=== PATIENT | female | born 1950 | race Caucasian/White ===

== ENCOUNTER 2017-11-04 13:01 | Day surgery (SDC) | payer OTHER ==
[2017-11-04] MEDS ORDERED: MIDAZOLAM 2 MG/2 ML VIAL IVP PRN (13:17)
[2017-11-04] MEDS ORDERED: FLUMAZENIL 0.5 MG/5 ML MDV IVP PRN (13:17)
[2017-11-04] MEDS ORDERED: MEPERIDINE 25 MG/ML SYR IVP PRN (13:17)
[2017-11-04] MEDS ORDERED: NALOXONE HCL 0.4 MG/ML INJ IVP PRN (13:17)
[2017-11-04] MEDS ORDERED: fentaNYL 100 MCG/2 ML INJ IVP PRN (13:17)
[2017-11-04] MEDS ORDERED: fentaNYL 100 MCG/2 ML INJ ONE (13:21)
[2017-11-04] MEDS ORDERED: NS 1,000 ML IV SCH (13:30)
[2017-11-04 14:17] VITALS: TEMP 98.3
--- NOTE | 2017-11-04 14:32 | PDPROPOC ---
Sedation Plan of Care Sedation Plan of Care: vital signs stable, mental status noted, patient educated of risks, benefits, alternatives, patient can tolerate sedation ASA Classification: ASA 2 Planned drugs: fentanyl, midazolam Mallampati Score: Class 1 Mallampati Reference Image: Patient passed 3-3-2 rule?: Yes
--- NOTE | 2017-11-04 14:34 | PDGENHP ---
History & Physical Chief Complaint: LOW BACK PAIN WITH LEG PAIN History of Present Illness: HAS HAD PAINFUL BACK FOR A WHILE. FRONT AND BACK OF LEGS, SOMETIMES DOWNT TO SHINS. Pertinent Past, Social, Family History: SHOULDER RECONSTRUCTION, ARTHROSCOPY, MENISCAL TEAR. Relevant Physical Exam: NO PAIN WHILE IN SUPINE POSITION. Cardiorespiratory Assessment: RRR, CTA
[2017-11-04] MEDS ORDERED: TRIAMCINOLONE ACETONIDE 200 MG/5 ML MDV IM ONE (15:20)
[2017-11-04] MEDS ORDERED: IOPAMIDOL (ISOVUE-M 300) 15 ML VIAL ONE (15:20)
[2017-11-04] MEDS ORDERED: ONDANSETRON 4 MG/2 ML VIAL IVP PRN (15:36)
--- NOTE | 2017-11-04 15:38 | PDRADPN ---
Radiology Procedure Note Date of Procedure: 11/04/17 Radiologist: Sharri Goncalves Pre-op Diagnosis: BACK PAIN Post-op Diagnosis: SAME Indication: SEVERE PAIN Procedure: L4-5 NEETU Inf/Abcess present in the surg proc area at time of surgery?: No
[2017-11-04 15:44] VITALS: BP 139/75; PULSE 60; RESP 14; O2SAT 100
== END 2017-11-04 16:40 | disposition home or self-care (01) ==
LOC: FIMAGING 13:01
PROVIDERS: ATTEND Family Medicine
PROC: 3E0R33Z Introduction of Anti-inflammatory into Spinal Canal, Percutaneous Approach (ICD-10-PCS; principal; 2017-11-04 15:23)
DX: M54.16 Radiculopathy, lumbar region (principal); M48.061 Spinal stenosis, lumbar region without neurogenic claudication
CPT/HCPCS: J2250; J2310; J3010; J3301; Q9967

== ENCOUNTER 2018-07-01 13:44 | Inpatient (IN) | payer OTHER, MEDICARE ==
[2018-07-02] MEDS ORDERED: LR 1,000 ML IV ONE (13:02)
[2018-07-02] MEDS ORDERED: PROPOFOL/EMULSION 500 MG/50 ML BOTTLE IV ONE (14:10)
[2018-07-02] MEDS ORDERED: HYDROmorphONE/DILAUDID 2 MG/ML INJ ONE ×2 (14:10→19:33)
[2018-07-02] MEDS ORDERED: LIDOCAINE 2% 2 ML INJ ONE (14:11)
[2018-07-02] MEDS ORDERED: THROMBIN (BOVINE) 5,000 UNIT VIAL TP ONE (14:19)
[2018-07-02] MEDS ORDERED: BUPIVACAINE 0.25% 30 ML SDV ONE (14:19)
[2018-07-02] MEDS ORDERED: EPINEPHrine 1 MG/ML INJ ONE (14:19)
[2018-07-02] MEDS ORDERED: CHLORHEXIDINE GLUC HIBICLENS 118 ML BTL TP ONE (14:20)
[2018-07-02] MEDS ORDERED: BACITRACIN 50,000 UNITS/10 ML SYR IRR ONE (14:20)
[2018-07-02] MEDS ORDERED: NS 500 ML IV PRN (14:25)
[2018-07-02] MEDS ORDERED: oxyCODONE IR 5 MG TAB PO PRN (14:25)
[2018-07-02] MEDS ORDERED: DEXAMETHASONE 4 MG/ML VIAL IVP PRN (14:25)
[2018-07-02] MEDS ORDERED: MIDAZOLAM 2 MG/2 ML VIAL IVP ONE (14:25)
[2018-07-02] MEDS ORDERED: ACETAMINOPHEN 500 MG TAB PO PRN (14:25)
[2018-07-02] MEDS ORDERED: PROMETHAZINE HCL 25 MG/ML INJ IVP PRN (14:25)
[2018-07-02] MEDS ORDERED: ONDANSETRON 4 MG/2 ML VIAL IVP PRN ×2 (14:25→15:49)
[2018-07-02] MEDS ORDERED: ALBUTEROL 3 ML DEYVIAL IH PRN (14:25)
[2018-07-02] MEDS ORDERED: NALOXONE HCL 0.4 MG/ML INJ IVP PRN (14:25)
--- NOTE | 2018-07-02 14:25 | PDANEPAE ---
ANE History of Present Illness Lumber TLIF ANE Past Medical History - Cardiovascular History Hx Hypertension: Yes Hx Arrhythmias: No Hx Chest Pain: No Hx Coronary Artery / Peripheral Vascular Disease: No Hx CHF / Valvular Disease: No Hx Palpitations: No - Pulmonary History Hx COPD: No Hx Asthma/Reactive Airway Disease: No Hx Recent Upper Respiratory Infection: No Hx Oxygen in Use at Home: No Hx Sleep Apnea: No Sleep Apnea Screening Result - Last Documented: Negative Pulmonary History Comment: Sep - Neurologic History Hx Cerebrovascular Accident: No Hx Seizures: No Hx Dementia: No Neurologic History Comment: gets 'zings' from buttocks to ankles - Endocrine History Hx Diabetes: No - Renal History Hx Renal Disorders: No - Liver History Hx Hepatic Disorders: No - Neurological & Psychiatric Hx Hx Neurological and Psychiatric Disorders: No - Cancer History Hx Cancer: No - Congenital Disorder History Hx Congenital Disorders: No - GI History Hx Gastrointestinal Disorders: Yes Gastrointestinal History Comment: GERD - Other Health History Other Health History: wears glasses - Chronic Pain History Chronic Pain: Yes (back, legs) - Surgical History Prior Surgeries: right SHOULDER RECONSTRUCTION. ARTHROSCOPIC. TRIMALLEOLAR FX. TONSILS REM. R Meniscus repair x2 ANE Review of Systems Review of Systems: - Exercise capacity METS (RN): 3 METS ANE Patient History - Allergies Allergies/Adverse Reactions: cocoa [chocolate] Allergy (Verified 06/26/18 11:04) Rash, boils Milk Containing Products Allergy (Verified 10/31/17 12:51) Congestion nitrofurantoin [From Macrobid] Allergy (Verified 06/26/18 11:04) high fever, cannot bend joints valacyclovir Allergy (Verified 06/26/18 11:04) vertigo wheat Allergy (Verified 10/31/17 12:51) Congestion - Home Medications Home Medications: Herbals/Supplements -Info Only 1 ea PO DAILY 06/26/18 [Last Taken 06/29/18] [place]orn-3 Fatty Acids [Fish Oil 1000 mg (*)] 1,000 mg PO BID 06/26/18 [Last Taken 06/29/18] Pantoprazole Sodium [Protonix 40mg (*)] 40 mg PO DAILY 06/26/18 [Last Taken 09/18] Triamterene/Hctz 37.5/25 [Dyazide 37.5/25 (*)] 1 each PO DAILY 06/26/18 [Last Taken 07/02/18] amLODIPine BESYLATE [Amlodipine Besylate] 5 mg PO DAILY 06/26/18 [Last Taken 09/18] traMADol [Ultram 50 mg (*)] 75 mg PO TID 06/26/18 [Last Taken 07/02/18] traZODone [traZODONE 100MG (*)] 100 mg PO HS PRN 06/26/18 [Last Taken 07/02/18] - NPO status NPO Since - Liquids (Date): 07/02/18 NPO Since - Liquids (Time): 07:45 NPO Since - Solids (Date): 07/01/18 NPO Since - Solids (Time): 19:30 - Smoking Hx Smoking Status: Former smoker - Family Anes Hx Family Hx Anesthesia Complications: NONE ANE Labs/Vital Signs - Vital Signs Blood Pressure: 116/73 Heart Rate: 69 Respiratory Rate: 16 O2 Sat (%): 93 Height: 162.56 cm Weight: 65.771 kg ANE Physical Exam - Airway Neck exam: FROM Mallampati Score: Class 2 Mouth exam: normal dental/mouth exam - Pulmonary Pulmonary: clear to auscultation - Cardiovascular Cardiovascular: regular rate and rhythym - ASA Status ASA Status: II ANE Anesthesia Plan Anesthesia Plan: general endotracheal anesthesia
[2018-07-02] MEDS ORDERED: ceFAZolin 2 GM/DEXTROSE 100 ML IV ONE (14:27)
[2018-07-02] MEDS ORDERED: ACETAMINOPHEN 500 MG TAB PO ONE (14:27)
[2018-07-02] MEDS ORDERED: traZODone 100 MG TAB PO PRN (14:29)
--- NOTE | 2018-07-02 14:36 | PDHPUP ---
History & Physical Update H&P update statement: This history and physical update is based on an assessment of the patient which was completed after admission or registration (within 24 hours), but prior to the surgery/procedure. H&P update: H&P reviewed & patient examined, no change in patient's condition since H&P completed
[2018-07-02] MEDS ORDERED: MIDAZOLAM 2 MG/2 ML VIAL ONE (14:48)
[2018-07-02] MEDS ORDERED: CEFAZOLIN 2 GM/DEXTROSE/100 ML BAG IV ONE (14:48)
[2018-07-02] MEDS ORDERED: ePHEDrine SULFATE 25 MG/5 ML SYR ONE (15:23)
[2018-07-02] MEDS ORDERED: diphenhydrAMINE 25 MG CAP PO PRN (15:49)
[2018-07-02] MEDS ORDERED: BISACODYL 10 MG SUPP PR PRN (15:49)
[2018-07-02] MEDS ORDERED: ONDANSETRON DISINTEGRATING 4 MG TAB PO PRN (15:49)
[2018-07-02] MEDS ORDERED: LACTULOSE 20 GM/30 ML UDCUP PO PRN (15:49)
[2018-07-02] MEDS ORDERED: POLYETHYLENE GLYCOL 3350 17 GM PKT PO PRN (15:49)
[2018-07-02] MEDS ORDERED: ceFAZolin 1 GM VIAL ONE (18:31)
[2018-07-02] MEDS ORDERED: SUGAMMADEX SODIUM 200 MG/2 ML VIAL IVP ONE (18:48)
[2018-07-02] MEDS ORDERED: DEXAMETHASONE 4 MG/ML VIAL ONE (18:50)
[2018-07-02] MEDS ORDERED: ONDANSETRON 4 MG/2 ML VIAL ONE (18:50)
--- NOTE | 2018-07-02 19:22 | POSTANESTH ---
Post Anesthetic Evaluation Cardiovascular Status: Normal, Stable Respiratory Status: Normal, Stable Level of Consciousness/Mental Status: Can Participate in Eval, Alert and Oriented Pain Control: Adequate, Prn Tx Ordered Nausea/Vomiting Control: Adequate, Prn Tx Ordered Complications Possibly Related to Anesthesia: None Noted
--- NOTE | 2018-07-02 19:26 | POSTOPPROG ---
Post Op Note Date of Operation: 07/02/18 Surgeon: Too Damian [employer] Supervisor: Jacqueline Anesthesiologist: Chris Anesthesia: GET(General Endotracheal) Pre-op Diagnosis: lumbar stenosis, L4-5 spondylolisthesis Post-op Diagnosis: same Indication: same Procedure: L3-5 TLIF, L3-4 laminectomy Findings: see dictation Inf/Abcess present in the surg proc area at time of surgery?: No EBL: 100-500 Total fluids administered: per anesthesia record Complications: none Drains: Mark Lin
--- NOTE | 2018-07-02 19:28 | PDCONSULT ---
Pet Walker Note: NEUROSURGERY no new events AAOx3 strength 5/5 at HF/E, KF/E, PF/DF sensation full dressings c/d/i POD#0 s/p L3-5 TLIF, L3-4 laminectomy -doing well -CASSANDRA drain to bulb suction -will get LSO brace tomorrow (can but up without it) -post-op standing xrays pending -PT/OT Rickie
[2018-07-02] MEDS ORDERED: fentaNYL 100 MCG/2 ML INJ ONE (19:32)
[2018-07-02] MEDS: fentaNYL 100 MCG/2 ML INJ IVP PRN ×3 (19:35→21:22)
[2018-07-02] MEDS: HYDROmorphONE/DILAUDID 2 MG/ML INJ IVP PRN ×8 (19:48→21:57)
[2018-07-02] MEDS: METHOCARBAMOL 750 MG TAB PO SCH ×2 (22:36→23:07)
[2018-07-02] MEDS: POLYETHYLENE GLYCOL 3350 17 GM PKT PO SCH ×2 (22:36→23:19)
[2018-07-02] MEDS: traMADol 50 MG TAB PO SCH ×2 (22:37→23:19)
[2018-07-02] MEDS: HYDROmorphONE/DILAUDID 1 MG/ML INJ IVP PRN (22:56)
[2018-07-02] MEDS: ACETAMINOPHEN 500 MG TAB PO SCH (23:02)
[2018-07-02] MEDS: GABAPENTIN 300 MG CAP PO SCH (23:02)
[2018-07-02] MEDS: FAMOTIDINE 20 MG TAB PO SCH (23:02)
[2018-07-02] MEDS: oxyCODONE IR 5 MG TAB PO PRN (23:02)
[2018-07-02] MEDS: ceFAZolin 2 GM/DEXTROSE 100 ML IV SCH (23:17)
[2018-07-02] MEDS: SENNOSIDES/DOCUSATE SODIUM TAB PO SCH (23:19)
[2018-07-03] MEDS: HYDROmorphONE/DILAUDID 2 MG TAB PO PRN ×5 (02:07→19:31)
--- NOTE | 2018-07-03 05:56 | GOP ---
DATE OF OPERATION: 07/02/2018 SURGEON: Too Damian MD NEUROSURGEON: Too Damian MD. DESIGN ENG: Becky Phillips PA-C. ANESTHESIA: General endotracheal. All neurophysiological monitoring was stable throughout the case without change. PREOPERATIVE DIAGNOSIS: Severe lumbar stenosis at L3-4, L4-5 with spondylolisthesis, worse at L4-5, and severe facet disease at L3-4. POSTOPERATIVE DIAGNOSIS: Severe lumbar stenosis at L3-4, L4-5 with spondylolisthesis, worse at L4-5, and severe facet disease at L3-4. PROCEDURE PERFORMED: 1. L3-4, L4-5 transforaminal lumbar interbody fusion. 2. Placement of interbody device, L3-4, L4-5. 3. Placement of pedicle screw fixation, L3, L4, L5. 4. Posterolateral spinal fusion, L3 to L5. 5. Complete laminectomy at L3 and L4 for decompression of the cauda equina. 6. [place] of local autograft. 7. Use of allograft bone morphogenetic proteins and cancellous bone chips. 8. Use of the operative microscope. 9. Stealth/O-arm stereotactic navigation for screw placement. FINDINGS: Successful TLIF. SPECIMENS: None. ESTIMATED BLOOD LOSS: 150 cc. INDICATIONS: The patient is a 68-year-old woman who presents with back and leg pain. Her leg pain w as worse on the right, but she also had symptoms of neurogenic claudication and severe back pain rela júnior to a mobile spondylolisthesis at L4-5. We had originally planned for L4-5 transforaminal lumbar interbody fusion, but when she recently got her new imaging before she came to her preoperative appoi ntment, this also shows very severe stenosis with facet degeneration at L3-4. So, we ultimately deci ded to do L3 to L5. DESCRIPTION OF PROCEDURE: After informed consent was obtained from the patient, the patient was brou ght to the operating room, and a formal time-out was performed, identifying the patient by name, main campus medical center record number, and date of . Preoperative antibiotics were given. The endotracheal tube wa s placed, and general endotracheal anesthesia was smoothly induced. All appropriate leads were place d for intraoperative neurophysiologic monitoring including somatosensory evoked potentials and EMG. The patient was then turned to the prone position on the Mark table, and all appropriate pressure points were padded and checked. A spinal needle was placed, and lateral radiographs confirmed the si te of the incision. The lumbar region was then prepped and draped in the normal sterile fashion. A skin incision was made using a 10 blade, and the subcutaneous tissues were dissected using monopolar electrocautery. The fascia was opened in the midline, and the paraspinous muscles were taken down fr om the laminae of L3, L4, and the upper portion of L5, exposing the facet joints at L2-3, L3-4 and L4 -5. Once we had the adequate exposure, the pars defects at L4-5 were clearly visualized, and large synovi al cysts were seen in this area as well. A navigation frame was placed on the L5 spinous process, an d an O-arm spin then showed the relevant anatomy from L3 to S1. Using navigation, each pedicle entry point was decorticated from L3 to L5 bilaterally. The 5.5 mm tap was then used to tap each pedicle using navigation, and Medtronic Solera screws were placed in the following order. 6.5 x 45 mm screws were placed bilaterally at L3, 6.5 x 45 mm screws were placed bilaterally at L4, and 6.5 x 40 mm scr ews were placed bilaterally at L5. All the screws went in without any difficulty whatsoever. At thi s point, the spinous processes of L3 and L4 were removed, and the high-speed drill was used to drill troughs laterally over the lateral recess, and complete laminectomies were performed using the high-s peed drill and then Kerrison punches. There was very severe compression from ligamentum hypertrophy and severe facet disease at both L3-4 and L4-5, and the dura was painstakingly dissected away from th fernando large areas of compression. The lateral recess was completely decompressed. At this point, disk space distraction was placed across the L3-4 interspace on the right side, and th e remaining portion of the pars and inferior facet of L3 and superior facet of L4 were completely dri lled, widely decompressing the foramen. The disk space was then entered, and a radical diskectomy wa s performed using punches and rasps, and the cartilaginous endplates were removed. Once the disk was completely removed and the disk space was clean, the disk space was sized for an 8 mm x 28 mm Medtro isis Elevate expandable cage which was packed with locally harvested morselized autograft and BMP. Th e disk space was first packed with autograft and then the cage was placed using stereotaxis. It was opened to its full extent of 12 mm. The disk space distractor was removed then down to the L4-5, and the same procedure was performed at L4-5 with a complete facetectomy to decompress the foramen, a ra dical diskectomy, and removing the endplates down to bleeding bone. This space was sized for an 8 x 23 mm Medtronic Elevate cage which again was packed with locally harvested morselized autograft and B MP. The disk space was again packed with autograft, and the cage was placed again stereotactically a nd opened to its full extent of 12 mm. At this point, all bleeding was controlled using bipolar elec trocautery and Gelfoam. A second O-arm spin was obtained showing excellent placement of all the scre ws and good placement of the cages as well with good alignment. At this point, the edges of the facet joints were decorticated for posterolateral fusion, and 5.5 x 6 0 mm Medtronic titanium rods were placed across the screw heads and locked in place using the locking caps which were tightened to their final torque. The 1 x 10 cm Magnifuse cancellous bone chips were then laid along the facet joints for posterolateral fusion. At this point, again the wound was copiously irrigated using bacitracin irrigation. A 10-Portuguese CASSANDRA d rain was placed in the subfascial space. The fascia was closed using interrupted 0 Vicryls, the deep dermis closed using interrupted 2-0 Vicryls, and the skin was closed using Dermabond. The drain was connected to a sterile drainage system, and sterile dressings were placed. Final x-rays were obtain ed showing good placement of all hardware. The patient was then turned back into the supine position where she was extubated and was transferred to the PACU in stable condition. There were no operativ e complications. I was scrubbed and present for the entire procedure. All sponge and needle counts were correct at the end of the case. FLUIDS AND URINE OUTPUT: Per the anesthesia record. DRAINS: Subfascial CASSANDRA. /[id number]/MODL
[2018-07-03] MEDS: GABAPENTIN 300 MG CAP PO SCH ×3 (06:02→22:19)
[2018-07-03] MEDS: ACETAMINOPHEN 500 MG TAB PO SCH ×2 (06:02→14:20)
[2018-07-03] MEDS: ceFAZolin 2 GM/DEXTROSE 100 ML IV SCH (06:03)
[2018-07-03] MEDS: METHOCARBAMOL 750 MG TAB PO SCH ×4 (06:12→20:44)
--- NOTE | 2018-07-03 08:50 | NEUSURGPN ---
Assessment/Plan: 68 yo F POD#1 s/p L3-5 TLIF, L3-4 laminectomy -doing well -CASSANDRA drain to bulb suction -Pain management -TEDs, SCDs, lovenox POD#1 -will get LSO brace today(can but up without it) -post-op standing xrays pending -PT/OT -D/w Dr Damian -Call NS with any issues Subjective: Pt resting in bed, having some incisional pain. Legs feel ok. Objective: AAOx3 NAD VSS MAEx4 Motor 5/5 BLE JPx1 +LT Urinary Catheter in Place: No Catheter Insertion Date: 07/02/18 - Physician Discussed Patient with : Rickie Neurosurgery Physical Exam - Vitals, I&O, Labs I and O 07/02/18 07/03/18 07/04/18 05:59 05:59 05:59 Intake Total 2850 450 Output Total 1175 Balance 1675 450 Weight 65.771 kg Intake: Oral (ml) 850 450 IV Intake (ml) 2000 Output: Urine (ml) 650 Catheter 650 Estimated Blood Loss (ml) 50 CASSANDRA Drain Output (ml) 475 Right Back 475 Other: Output Comment Toilet missed hat Number of Voids Toilet 1 Vital Signs Temp Pulse Resp BP Pulse Ox 37.2 C 74 16 92/63 L 97 07/03/18 08:00 07/03/18 08:00 07/03/18 08:00 07/03/18 08:00 07/03/18 08:00 ICD10 Worksheet Patient Problems: Problems Problem Status Onset Back pain of lumbar region with sciatica Acute
--- NOTE | 2018-07-03 10:01 | PDMN ---
Medical Necessity Medical necessity: CPT 56639 Lumbar fusion, IP only procedure
[2018-07-03] MEDS: traMADol 50 MG TAB PO SCH ×3 (10:32→22:16)
[2018-07-03] MEDS: FAMOTIDINE 20 MG TAB PO SCH ×2 (10:33→20:44)
[2018-07-03] MEDS: SENNOSIDES/DOCUSATE SODIUM TAB PO SCH ×2 (10:34→20:43)
[2018-07-03] MEDS: PANTOPRAZOLE SODIUM 40 MG TAB PO SCH (10:34)
[2018-07-03] MEDS: POLYETHYLENE GLYCOL 3350 17 GM PKT PO SCH ×3 (10:35→20:43)
[2018-07-03] MEDS: ENOXAPARIN 40 MG/0.4 ML SYR SC SCH (10:35)
[2018-07-03] MEDS: amLODIPine BESYLATE 5 MG TAB PO SCH (10:35)
[2018-07-03] MEDS: TRIAMTERENE/HCTZ 37.5/25 1 EACH CAP PO SCH (10:35)
[2018-07-03] MEDS: HYDROmorphONE/DILAUDID 1 MG/ML INJ IVP PRN (14:27)
--- NOTE | 2018-07-03 17:27 | ASMTCMCOM ---
CM Note CM Note Notes: Pt had planned lumbar surgery. 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 OT rec home, PT rec home/outpatient. Anticipate pt will d/c when medically stable with no CM needs. CM available for changes/needs. Date Signed: 07/03/2018 05:26 PM Electronically Signed By:MARLENY Evans
[2018-07-03] MEDS: oxyCODONE IR 5 MG TAB PO PRN (20:45)
[2018-07-04] MEDS: HYDROmorphONE/DILAUDID 1 MG/ML INJ IVP PRN (03:53)
[2018-07-04] MEDS: oxyCODONE IR 5 MG TAB PO PRN ×4 (04:11→18:18)
[2018-07-04] MEDS: METHOCARBAMOL 750 MG TAB PO SCH ×4 (05:53→21:20)
[2018-07-04] MEDS: ACETAMINOPHEN 500 MG TAB PO SCH ×3 (05:53→13:37)
[2018-07-04] MEDS: GABAPENTIN 300 MG CAP PO SCH ×3 (05:57→21:15)
[2018-07-04] MEDS: HYDROmorphONE/DILAUDID 2 MG TAB PO PRN ×5 (06:03→21:21)
[2018-07-04] MEDS: MAGNESIUM HYDROXIDE 30 ML UDCUP PO PRN (08:30)
[2018-07-04] MEDS: amLODIPine BESYLATE 5 MG TAB PO SCH (08:31)
[2018-07-04] MEDS: ENOXAPARIN 40 MG/0.4 ML SYR SC SCH (08:31)
[2018-07-04] MEDS: TRIAMTERENE/HCTZ 37.5/25 1 EACH CAP PO SCH (08:31)
[2018-07-04] MEDS: SENNOSIDES/DOCUSATE SODIUM TAB PO SCH ×2 (08:31→21:19)
[2018-07-04] MEDS: PANTOPRAZOLE SODIUM 40 MG TAB PO SCH (08:31)
[2018-07-04] MEDS: traMADol 50 MG TAB PO SCH ×3 (08:31→21:20)
[2018-07-04] MEDS: FAMOTIDINE 20 MG TAB PO SCH ×2 (08:32→21:20)
[2018-07-04] MEDS: POLYETHYLENE GLYCOL 3350 17 GM PKT PO SCH ×3 (08:32→21:20)
--- NOTE | 2018-07-04 09:27 | SOAPPROG ---
SOAP Progress Note Assessment/Plan: Assessment: 68 yo F POD #2 L3/4, L4/5 TLIF Plan: stable post op x-rays look good PT/OT scd/júnior/lovenox for dvt prophylaxis may dc home today please call with neuro changes 07/04/18 09:25 Subjective: continued back pain, no leg pain, no weakness. Objective: Vital Signs Temp Pulse Resp BP Pulse Ox 37.3 C 71 15 110/69 97 07/04/18 07:47 07/04/18 07:47 07/04/18 07:47 07/04/18 08:31 07/04/18 07:47 07/03/18 07/04/18 07/05/18 05:59 05:59 04:59 Intake Total 2850 950 500 Output Total 1175 2340 Balance 1675 -1390 500 AAOX4, +FC PERRL, EOMI, no facial droop 5/5 + light touch C/D/I ICD10 Worksheet Patient Problems: Problems Problem Status Onset Back pain of lumbar region with sciatica Acute
[2018-07-05] MEDS: ACETAMINOPHEN 500 MG TAB PO SCH ×2 (00:37→05:32)
[2018-07-05] MEDS: HYDROmorphONE/DILAUDID 2 MG TAB PO PRN ×2 (04:26→09:29)
[2018-07-05] MEDS: METHOCARBAMOL 750 MG TAB PO SCH ×2 (05:31→12:22)
[2018-07-05] MEDS: MAGNESIUM HYDROXIDE 30 ML UDCUP PO PRN ×2 (05:31→12:23)
[2018-07-05] MEDS: GABAPENTIN 300 MG CAP PO SCH (05:32)
[2018-07-05] MEDS: oxyCODONE IR 5 MG TAB PO PRN ×2 (06:20→12:22)
--- NOTE | 2018-07-05 06:42 | SOAPPROG ---
SOAP Progress Note Assessment/Plan: Assessment: 68 yo F POD #3 L3/4, L4/5 TLIF Plan: stable post op x-rays look good dc sissy PT/OT scd/júnior/lovenox for dvt prophylaxis dc home today please call with neuro changes 07/04/18 09:25 07/05/18 06:41 Subjective: continued back pain, some pain in anterior of both thighs, walking well in hallway Objective: Vital Signs Temp Pulse Resp BP Pulse Ox 37.2 C 87 16 124/79 H 96 07/05/18 01:12 MST 07/05/18 00:00 07/05/18 00:00 07/05/18 00:00 07/05/18 00 :00 07/04/18 07/05/18 07/06/18 06:59 05:59 05:59 Intake Total Output Total 1205 Balance -1205 AAOx4, +FC PERRL, EOMI, no facial drop 5/5 + light touch C/D/I ICD10 Worksheet Patient Problems: Problems Problem Status Onset Back pain of lumbar region with sciatica Acute
[2018-07-05 09:29] VITALS: BP 94/53
[2018-07-05] MEDS: POLYETHYLENE GLYCOL 3350 17 GM PKT PO SCH (09:30)
[2018-07-05] MEDS: PANTOPRAZOLE SODIUM 40 MG TAB PO SCH (09:30)
[2018-07-05] MEDS: ENOXAPARIN 40 MG/0.4 ML SYR SC SCH (09:30)
[2018-07-05] MEDS: traMADol 50 MG TAB PO SCH (09:30)
[2018-07-05] MEDS: FAMOTIDINE 20 MG TAB PO SCH (09:31)
[2018-07-05] MEDS: SENNOSIDES/DOCUSATE SODIUM TAB PO SCH (09:31)
[2018-07-05] MEDS: amLODIPine BESYLATE 5 MG TAB PO SCH (09:32)
[2018-07-05] MEDS: TRIAMTERENE/HCTZ 37.5/25 1 EACH CAP PO SCH (09:34)
--- NOTE | 2018-07-05 11:43 | ASMTLACE ---
LACE Length of stay for Answers: 3 days current admission Acuity / Level of Answers: Yes Care: Did the patient have an inpatient admission? Comorbidities - select Answers: Opioid dependence all that apply / Chronic pain Other Notes: HTN; GERD # of Emergency department Answers: 0 visits in the last 6 months Score: 11 Date Signed: 07/05/2018 11:42 AM Electronically Signed By:Bita Aldrich LCSW
--- NOTE | 2018-07-05 11:47 | ASDISCHSUM ---
Discharge Information Plan Status:Home with No Needs Medically Cleared to Leave:07/05/2018 Discharge Date:07/05/2018 CM D/C Disposition:Home, Routine, Self-Care ADT D/C Disposition:Home, Routine, Self-Care Projected Discharge Date:07/05/2018 12:00 PM Transportation at D/C:Friend Discharge Delay Reason: Follow-Up Date:07/05/2018 12:00 PM Discharge Slot:1 - 8:01 am - 12:00 noon Final Diagnosis:L 3/4; L 4/5 TLIF Placement Information Patient Contact Information Contact Name:NAJMA Relationship:Friend Address: Work Phone: City: [facility] Phone: [facility] Code: Email: Financial Information Financial Class:Medicare Primary Plan Desc:MEDICARE INPATIENT Primary Plan Number:[id number] Secondary Plan Desc:[employer]/MDR SUPPLEMENT Secondary Plan Number:[id number] Assessment Information LACE LACE Length of stay for Answers: 3 days current admission Acuity / Level of Answers: Yes Care: Did the patient have an inpatient admission? Comorbidities - select Answers: Opioid dependence all that apply / Chronic pain Other Notes: HTN; GERD # of Emergency department Answers: 0 visits in the last 6 months Score: 11 Date Signed: 07/05/2018 11:42 AM Electronically Signed By:Bita Aldrich LCSW [facility] CM Progress Note CM Note CM Note Notes: Pt had planned lumbar surgery. Pt resides with a renter/friend who is a retired PROVIDER ENROLLMENT SPECIALIST who can assist. OT rec home, PT rec home/outpatient. Anticipate pt will d/c when medically stable with no CM needs. CM available for changes/needs. Date Signed: 07/03/2018 05:26 PM Electronically Signed By:MARLENY Evans Case Management Discharge Plan Note Case Management Discharge Discharge Order Complete? Answers: Yes Patient to Obtain Answers: Other Notes: Friend Medications Transportation Arranged Answers: Family/Friends Transport will Pick (Date 07/05/2018 12:00 PM & Time) Discharge Comments Notes: Patient has been discharged, no therapy needs, friend to transport. Date Signed: 07/05/2018 11:46 AM Electronically Signed By:Bita Aldrich LCSW Intervention Information Intervention Type:*IM-Signed Date of Service:07/03/2018 02:21 PM Patient Type:Inpatient Staff Member:Joy Rueda Hours: Discipline: Severity: Comment:
== END 2018-07-05 14:36 | disposition home or self-care (01) | DRG 455 ==
LOC: F3N 07-02 12:45
PROVIDERS: ADMIT Neurological Surgery; ATTEND Neurological Surgery
DX: M43.16 Spondylolisthesis, lumbar region (principal); M48.062 Spinal stenosis, lumbar region with neurogenic claudication; M54.16 Radiculopathy, lumbar region; F10.21 Alcohol dependence, in remission; I10 Essential (primary) hypertension
CPT/HCPCS: 97161-GP; 97165-GO; 97530-GP; 97535-GO; C1713; C1762; G0480; G8978-GP-CI; G8979-GP-CI; G8980-GP-CI; G8987-GO-CJ; G8988-GO-CI; J0171; J0690; J1100; J1170; J1650; J2250; J2405; J2704; J3010